=== PATIENT | male | born 1940 | race Caucasian/White ===

== ENCOUNTER 2018-09-19 17:18 | Emergency (ER) | payer OTHER ==
[~2018-09-19] VITALS: Ht 177.8 cm; Wt 106.8 kg
[2018-09-19] MEDS ORDERED: LASIX40 MG PO (17:34)
[2018-09-19] MEDS ORDERED: SPIRIVA18 MCG INH (17:35)
[2018-09-19] MEDS ORDERED: SYMBICORT 16010.2 GM INH (17:36)
[2018-09-19] MEDS ORDERED: ALBUTEROL SULF8.5 GM INH (17:38)
[2018-09-19] MEDS ORDERED: ELIQUIS5 MG PO (17:39)
[2018-09-19 17:56] VITALS: Ht 177.8 cm; Wt 106.8 kg
[2018-09-19 18:57] LABS: BASOPHILS 0 % (0-2); EOSINOPHILS 1.2 % (0-7); HEMATOCRIT 32.6 % (42.0-54.0); HEMOGLOBIN 9.9 g/dL (13.5-17.5); IMMATURE GRANULOCYTES 0.4 % (0-5); LYMPHOCYTES 28.4 % (15-50); MCHC 30.4 g/dL (31.0-37.0); MCV 102.2 fL (80.0-100.0); MEAN PLATELET VOLUME 9.6 fL (7.4-10.4); PLATELET COUNT 130 10x3/uL (130-400); RBC 3.19 10x6/uL (4.20-6.10); RDW 15.3 % (11.5-14.5); WBC 2.5 10x3/uL (4.8-10.8)
[2018-09-19 19:17] LABS: ALKALINE PHOSPHATASE 72 U/L (46-116); ALT (SGPT) 15 U/L (10-68); BILIRUBIN - TOTAL 0.24 mg/dL (0.2-1.3); CALC OSMOLALITY 291 mosm/kg (275-300); CALCIUM 9.3 mg/dL (8.5-10.1); CHLORIDE - SERUM 98 mmol/L (98-107); CREATININE - SERUM 0.9 mg/dL (0.6-1.3); GLUCOSE 112 mg/dL (74-106); POTASSIUM - SERUM 4.1 mmol/L (3.5-5.1); SODIUM 143 mmol/L (136-145); UREA NITROGEN 29 mg/dL (7-18); eGFR NON AFRICAN AMERICAN 87 mL/min (90-120)
[2018-09-19 19:22] LABS: CARBON DIOXIDE 47.5 mmol/L (21.0-32.0)
[2018-09-19 19:33] LABS: PRO BNP 889 pg/mL (0-450)
[2018-09-19 19:40] LABS: TROPONIN-I 0.065 ng/mL (0.000-0.060)
[2018-09-19 21:58] VITALS: BP 140/68
== END 2018-09-19 22:00 | disposition other institution (70) ==
LOC: D.ER 17:18
PROVIDERS: Family Medicine
DX: I50.9 Heart failure, unspecified (principal); R07.9 Chest pain, unspecified